=== PATIENT | male | born 1970 | race Caucasian/White ===

== ENCOUNTER 2022-03-19 15:48 | Emergency (ER) | payer SELFPAY ==
[2022-03-19 15:55] VITALS: BP 133/76; PULSE 72; TEMP 98.7; BMI 25.9
[2022-03-19] MEDS ORDERED: DIPHTH,PERTUSS(ACELL),TET 0.5 ML DISP.SYRIN IM ONE ×2 (16:34→16:50)
[2022-03-19] MEDS ORDERED: CEPHALEXIN MONOHYDRATE 500 MG CAPSULE (UD) PO ONE (16:35)
[2022-03-19] MEDS ORDERED: CEPHALEXIN MONOHYDRATE 500 MG CAPSULE (UD) ONE (16:49)
[2022-03-19] MEDS ORDERED: LIDOCAINE HCL 2% (20ML MULTI-DOSE VIAL) ONE (17:25)
== END 2022-03-19 18:08 | disposition home or self-care (01) ==
LOC: FER 15:48
PROC: 3E0234Z Introduction of Serum, Toxoid and Vaccine into Muscle, Percutaneous Approach (ICD-10-PCS; principal; 2022-03-19)
DX: S61.209A Unspecified open wound of unspecified finger without damage to nail, initial encounter (principal)
CPT/HCPCS: 73140-TC-LT-FY; 90715; 99284-25

== ENCOUNTER → 2023-03-15 | Emergency (ER) | payer OTHER ==
[~2023-03-15] MED LIST: ACETAMINOPHEN 1000 MG/100 ML BAG IVPB ONE; ACETAMINOPHEN INJECTION 100 ML IVPB ONE; LIDOCAINE 5% TOPICAL PATCH ONE; LIDOCAINE 5% TOPICAL PATCH TP ONE; LIDOCAINE PATCH REMOVAL MC SCH
[2023-03-15 02:42] VITALS: BMI 26.5
[2023-03-15 05:41] LABS: BASO % 0.6 % (0-2.0); EOS % 1.2 % (0-4.5); HEMATOCRIT 43.4 % (35.4-49); HEMOGLOBIN 15.1 GM/dL (11.7-16.9); LYMPH % 8.7 % (8-40); MCH 32.1 pg (25.7-33.7); MCHC 34.8 g/dl (32.0-35.9); MEAN CELL VOLUME 92.2 fl (80-96); MEAN PLT VOLUME 10.5 fl (7.5-11.1); MONO % 7.4 % (3.8-10.2); NEUT % 82.1 % (42.8-82.8); PLATELET COUNT 157 10^3/uL (134-434); RBC 4.71 M/mm3 (4.00-5.60); RDW 13.7 % (11.9-15.9)
[2023-03-15 05:44] LABS: INR 0.9 (0.83-1.09); PROTHROMBIN TIME (PATIENT) 10.4 SEC (9.7-13.0)
[2023-03-15 05:46] LABS: ACTIVATED PTT 27.3 SECONDS (25.2-36.5)
[2023-03-15 05:57] LABS: CALCIUM 8.2 mg/dL (8.5-10.1)
[2023-03-15 05:58] LABS: ALBUMIN 3.4 g/dl (3.4-5.0); BLOOD UREA NITROGEN 17.4 mg/dL (7-18)
[2023-03-15 06:01] LABS: CREATININE 0.9 mg/dL (0.55-1.3)
[2023-03-15 06:03] LABS: BILIRUBIN,TOTAL 0.2 mg/dL (0.2-1); TOT PROT 6.4 g/dl (6.4-8.2)
[2023-03-15 07:57] VITALS: RESP 18
[2023-03-15 08:10] VITALS: BP 127/68; PULSE 76; TEMP 98.3
[2023-03-15 08:37] LABS: URINE APPEARANCE CLOUDY; URINE BILIRUBIN NEGATIVE (NEGATIVE); URINE COLOR RED; URINE GLUCOSE (UA) NEGATIVE (NEGATIVE); URINE KETONE NEGATIVE (NEGATIVE)
[2023-03-15 08:38] LABS: URINE PROTEIN 3+ (NEGATIVE); URINE UROBILINOGEN 0.2 mg/dL (0.2-1.0)
[2023-03-15 08:39] LABS: EPI CELLS 25.8 /uL (0-25.1); HYALINE CASTS 0.86 /uL (0-3.1); URINE BACTERIA 0.9 /uL (0-1359); URINE LEUK ESTERASE 1+ (NEGATIVE); URINE NITRITE NEGATIVE (NEGATIVE); URINE RBC 25966.2 /uL (0-23.9); URINE WBC 107.6 /uL (0-25.8)
== END | disposition short-term general hospital (02) ==
LOC: JER 02:26
PROC: 3E033NZ Introduction of Analgesics, Hypnotics, Sedatives into Peripheral Vein, Percutaneous Approach (ICD-10-PCS; principal; 2023-03-15)
DX: S37.032A Laceration of left kidney, unspecified degree, initial encounter (principal); R10.32 Left lower quadrant pain; R31.0 Gross hematuria; W17.89XA Other fall from one level to another, initial encounter; Y92.812 Truck as the place of occurrence of the external cause; Z20.822 Contact with and (suspected) exposure to COVID-19
CPT/HCPCS: 0241U-QW; 36415; 71260-TC; 74177-TC; 80053; 81003; 85025; 85610; 85730; 86850; 86900; 86901; 93005; 93010; 99285-25

== ENCOUNTER 2024-06-02 15:40 | Emergency (ER) | payer OTHER ==
[2024-06-02 16:01] VITALS: BP 144/87; PULSE 74; RESP 16; TEMP 98.4; BMI 22.9
[2024-06-02] MEDS ORDERED: AMOX TR/POT CLAV 875MG/125MG TABLETS (FP) ONE (19:24)
[2024-06-02] MEDS: AMOX TR/POT CLAV 875MG/125MG TABLETS (FP) PO ONE (19:27)
== END 2024-06-02 19:35 | disposition home or self-care (01) ==
LOC: JERFT 15:40
PROC: 0XQSXZZ Repair Right Ring Finger, External Approach (ICD-10-PCS; principal; 2024-06-02)
DX: S61.214A Laceration without foreign body of right ring finger without damage to nail, initial encounter (principal); W26.8XXA Contact with other sharp object(s), not elsewhere classified, initial encounter
CPT/HCPCS: 73130-TC-RT-FY; 99283-25